=== PATIENT | female | born 1945 | race Caucasian/White ===

== ENCOUNTER 2019-07-06 09:56 | Outpatient (CLI) | payer MEDICARE | END 2019-07-06 23:59 | disposition home or self-care (01) | LOC: STAR 09:56 | PROVIDERS: ATTEND Obstetrics & Gynecology Female Pelvic Medicine and Reconstructive Surgery | DX: Z02.9 Encounter for administrative examinations, unspecified (principal) ==

== ENCOUNTER → 2019-10-29 | Outpatient (CLI) | payer MEDICARE ==
[~2019-10-29] MED LIST: ALBU8.5H8 INH; ASCO500T59 PO; CALC1CAP8 PO; CHOL10003 PO; CRANBERRY PO; DOCU100T3 PO; ESTRADIOL VG; FLUO20TA25 PO; FLUT10.6 INH; LEVO75TA5 PO; LUTE1CAP6 PO; MAGNESIUM PO; MULT-108 PO; NYST15CR2 TP; RABE20TA26 PO; VITA100C8 PO; VITA1TAB19 PO
== END | disposition home or self-care (01) ==
LOC: STAR 08:14
PROVIDERS: ATTEND Obstetrics & Gynecology Female Pelvic Medicine and Reconstructive Surgery
DX: Z01.818 Encounter for other preprocedural examination (principal); N39.3 Stress incontinence (female) (male); N81.10 Cystocele, unspecified; N81.6 Rectocele; R94.31 Abnormal electrocardiogram [ECG] [EKG]
CPT/HCPCS: 93005

== ENCOUNTER 2019-11-02 05:23 | Day surgery (SDC) | payer MEDICARE ==
[~2019-11-02] VITALS: Ht 160 cm; Wt 67.2 kg
[2019-11-02] MEDS ORDERED: LACTATED RINGERS 1,000 ML IV SCH (05:58)
[2019-11-02] MEDS ORDERED: CHLORHEXIDINE 15 ML UDC MM ONE (06:00)
[2019-11-02 06:02] VITALS: BP 121/79
[2019-11-02] MEDS ORDERED: BUPIVACAINE/PF-EPI 0.25% 1:200K ONE (06:41)
[2019-11-02] MEDS ORDERED: VANCOMYCIN 500 MG ONE (06:41)
[2019-11-02] MEDS ORDERED: GENTAMICIN 80 MG/2 ML ONE (06:41)
[2019-11-02] MEDS ORDERED: FENTANYL PF 250 MCG/5ML ONE (07:25)
[2019-11-02] MEDS ORDERED: PROMETHAZINE 25 MG SUPP PR PRN (07:30)
[2019-11-02] MEDS ORDERED: ONDANSETRON 2MG/ML, 2ML IVPush PRN (07:30)
[2019-11-02] MEDS ORDERED: OXYcodone 5 MG/5 ML ORAL.SOL UDC PO PRN (07:30)
[2019-11-02] MEDS ORDERED: FENTANYL PF 100 MCG/2ML IV PRN (07:30)
[2019-11-02] MEDS ORDERED: ACETAMINOPHEN 325 MG TABLET PO PRN (07:30)
[2019-11-02] MEDS ORDERED: ALBUTEROL SULFATE 2.5 MG/3 ML NPPB PRN (07:30)
[2019-11-02] MEDS ORDERED: HYDROmorphone 1 MG/ML, 1ML INJ IVPush PRN (07:30)
[2019-11-02] MEDS ORDERED: PROMETHAZINE 25 MG/ML, 1ML IVPush PRN (07:30)
[2019-11-02] MEDS ORDERED: LIDOCAINE-MPF 2% ,5ML ONE (07:31)
[2019-11-02] MEDS ORDERED: PROPOFOL 100 ML ONE (07:38)
[2019-11-02] MEDS ORDERED: DEXAMETHASONE 4 MG/ML, 1ML ONE (08:08)
[2019-11-02] MEDS ORDERED: PROPOFOL 10 MG/ML, 20ML ONE (08:08)
[2019-11-02] MEDS ORDERED: ONDANSETRON 2MG/ML, 2ML ONE (08:08)
[2019-11-02] MEDS ORDERED: CEFAZOLIN 1,000 MG ONE (08:08)
[2019-11-02] MEDS ORDERED: OXYcodone 5 MG/5 ML ORAL.SOL UDC ONE (09:04)
[2019-11-02] MEDS ORDERED: ACETAMINOPHEN 650 MG/20.3 ML UDC ONE (09:04)
[2019-11-02] MEDS ORDERED: FENTANYL PF 100 MCG/2ML ONE (09:04)
[2019-11-02] MEDS ORDERED: KETOROLAC 30 MG/1 ML ONE (11:36)
[2019-11-02] MEDS ORDERED: KETOROLAC 30 MG/1 ML IM ONE (12:00)
== END 2019-11-02 12:30 | disposition home or self-care (01) ==
LOC: OUT 05:23
PROVIDERS: ATTEND Obstetrics & Gynecology Female Pelvic Medicine and Reconstructive Surgery
DX: R10.2 Pelvic and perineal pain (principal); Z11.59 Encounter for screening for other viral diseases; N99.3 Prolapse of vaginal vault after hysterectomy; N39.46 Mixed incontinence; E89.0 Postprocedural hypothyroidism; J45.909 Unspecified asthma, uncomplicated; Z79.890 Hormone replacement therapy; Z79.899 Other long term (current) drug therapy; Z88.1 Allergy status to other antibiotic agents; Z88.8 Allergy status to other drugs, medicaments and biological substances; Z90.722 Acquired absence of ovaries, bilateral; Z90.79 Acquired absence of other genital organ(s); Z98.890 Other specified postprocedural states
CPT/HCPCS: 36415; 57265; 57282; 57288; 87635; C1771; J0690; J1100; J1580; J1885; J2405; J2704; J3010; J3370; J7120